=== PATIENT | female | born 2000 | race Caucasian/White ===

== ENCOUNTER → 2020-12-28 14:38 | Outpatient (CLI) | payer BC, SELFPAY ==
--- NOTE | ~2020-12-28 | XR_ITS ---
XR chest 2V DATE: 12/28/2020 14:55 INDICATION: Acute lower respiratory infection TECHNIQUE: PA and lateral views COMPARISON: 02/17/2016 PA and lateral chest FINDINGS: Normal heart size. No hilar or mediastinal enlargement. No pulmonary infiltrate or consolid ation, pleural effusion or pulmonary vascular congestion or pneumothorax. IMPRESSION: No active cardiopulmonary disease Reviewed, dictated and finalized at location A.
== END ==
PROVIDERS: PCP Family Medicine; Visit Provider Physician Assistant
DX: J22 Unspecified acute lower respiratory infection (principal)
CPT/HCPCS: 71046

== ENCOUNTER 2021-05-15 10:13 | Emergency (ER) | payer BC, SELFPAY ==
[2021-05-15 10:27] VITALS: BP 134/87; PULSE 77; RESP 16; TEMP 36.9; O2SAT 99
--- NOTE | 2021-05-15 11:40 | ED.NAVMDI ---
HPI - Nausea/Vomiting/Diarrhea General Chief complaint: Nausea/Vomiting/Diarrhea Stated complaint: Stomach Pain Source: patient and RN notes reviewed Limitations: no limitations History of Present Illness HPI Narrative: The patient, a non-smoker/nondrinker here with also unwell roommates, presents with 1/2-week history of diarrhea x8 to 10/day associated with scratchy throat. Symptoms are mild, unrelieved with Imodium and associated with mild cramping. No abdominal pain, fever, vomiting, cough, frequency/dysuria, foreign travel, blood; no loss of taste/smell, CP, rash, shortness of breath. 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 Related Data Home Medications Medication Instructions Recorded Confirmed norgestimate 0.25 mg-ethinyl 1 tablet PO DAILY 03/30/21 03/30/21 estradiol 35 mcg tablet Allergies Allergy/AdvReac Type Severity Reaction Status Date / Time No Known Allergies Allergy Verified 03/30/21 12:19 Review of Systems Review of Systems: General/Constitutional: No weight loss,fever Eyes: N0: Redness,discharge Ears/Nose/Throat: No: Epistaxis,ear discharge Respiratory: Denies: Hemoptysis Gastrointestinal: No Vomiting, Bleeding-rectal Skin: No Lumps, eruption Neurologic: No Focal Weakness,Sz Hematologic: Denies: Petechiae/Purpura Psychiatric: No: Suicida ideationl All Other Systems: Reviewed and Negative [facility] Social History Social History (Updated 03/30/21 @ 12:16 by Cookie Chaudhary) Second hand tobacco smoke exposure: No Alcohol intake: never Substance use: never Substance use type: does not use Gender identity (if verbalized by the patient): Female Comments At time of signature, agree with nursing past medical, surgical, social and family history. There is no relevant family history pertinent to the presenting complaint Exam Narrative: General Appearance: Well appearing, No distress EYE: PERRLA, Conjunctiva clear Ears: External ear normal Nose: Normal nose Mouth/Throat: Normal appearing, Normal lips Neck: Supple Respiratory: Airway patent, No respiratory distress Cardiovascular: RRR Abdomen: Soft, Non-tender, Musculoskeletal: Full ROM Skin: Warm, Dry Neurological: A&O x3, CN II-X intact Psychiatric: Normal mood, Normal affect Course Vital Signs Vital signs: Vital Signs Temperature 98.4 F 05/15/21 10:27 Pulse Rate 77 05/15/21 10:27 Respiratory Rate 16 05/15/21 10:27 Blood Pressure 134/87 05/15/21 10:27 Pulse Oximetry 99 05/15/21 10:27 Temperature 98.4 F 05/15/21 10:27 Pulse Rate 77 05/15/21 10:27 Respiratory Rate 16 05/15/21 10:27 Blood Pressure 134/87 05/15/21 10:27 Pulse Oximetry 99 05/15/21 10:27 MDM - Nausea/Vomiting/Diarrhea Lab Data Labs: Lab Results 05/15/21 Range/Units 10:44 POC SARS CoV-2 Ag Negative (Negative) Discharge Plan Discharge Clinical Impression: Diarrhea Qualifiers: Diarrhea type: unspecified type Qualified Code(s): R19.7 - Diarrhea, unspecified Patient Disposition: Home, Self-Care Condition: Stable Instructions: Acute Diarrhea (ED) Prescriptions: New diphenoxylate-atropine [Lomotil] 2.5-0.025 mg tablet 1 tablet PO DAILY Qty: 7 RF: 0 ondansetron HCl [Zofran] 4 mg tablet 4 mg PO BID PRN (Reason: nausea and vomiting) Qty: 10 RF: 0 No Action albuterol sulfate [ProAir HFA] 90 mcg/actuation HFA aerosol inhaler 1 inh inhalation Q4H PRN (Reason: shortness of breath or wheezing) Qty: 8.5 RF: 0 norgestimate-ethinyl estradiol [Sprintec (28)] 0.25-35 mg-mcg tablet 1 tablet PO DAILY RF: 0 Follow-up/Referrals: Coby Reyes MD [Primary Care Provider] - Stand Alone Forms: Work/School Release IP
== END 2021-05-15 11:45 | disposition home or self-care (01) ==
PROVIDERS: Emergency Provider Emergency Medicine; PCP Family Medicine
DX: R19.7 Diarrhea, unspecified (principal); R11.2 Nausea with vomiting, unspecified; Z20.822 Contact with and (suspected) exposure to COVID-19
CPT/HCPCS: 87426; 99213; C9803; G0463

== ENCOUNTER 2021-09-22 00:52 | Day surgery (SDC) | payer BC, SELFPAY ==
[2021-09-13 10:17] VITALS: BMI 28.4
[2021-09-22 10:55] VITALS: BP 141/74; PULSE 103; RESP 16; TEMP 36.3; O2SAT 100; BMI 31.0
--- NOTE | 2021-09-22 11:15 | WPDANESEPPF ---
Anes - Initial Pre Proc Eval Procedure: Operation Date: 09/22/21 12:30 Proposed Procedures p Colonoscopy - Matthew Hurst MD Date/Time: 09/22/21 11:15 Surgeon: Matthew Hurst MD Pre Op Diagnosis: abdominal pain, constipation, rectal pain Patient Data Age: 21 Gender: F Height: 1.68 m Weight: 87.2 kg Last Vital Signs Temp 36.3 C L 09/22/21 10:55 Pulse 103 H 09/22/21 10:55 Resp 16 09/22/21 10:55 BP 141/74 H 09/22/21 10:55 Pulse Ox 100 09/22/21 10:55 Allergies Allergy/AdvReac Type Severity Reaction Status Date / Time No Known Allergies Allergy Verified 09/22/21 10:58 Home Medications Medication Instructions Recorded Confirmed Type albuterol sulfate 90 mcg/actuation 1 inh INHALATION Q4H PRN #8.5 g 12/28/20 09/22/21 Rx aerosol inhaler norgestimate 0.25 mg-ethinyl 1 tablet PO DAILY 03/30/21 09/22/21 History estradiol 35 mcg tablet Patient hx anesthesia problems: none Family hx anesthesia problems: none Results Review: All pre-operative results and documents have been reviewed as part of the pre-operative evaluation. [facility], [facility] Past Medical History Medical History (Updated 09/22/21 @ 11:16 by Wiley Wadsworth MD) Constipation Obesity Social History Social History Smoking status: Never smoker Second hand tobacco smoke exposure: No Alcohol intake: never Substance use: never Substance use type: does not use Living arrangements: alone Gender identity (if verbalized by the patient): Female Spiritual care concerns: No Anes - Eval Final PreProcedure Day of Procedure 09/22/21 11:15 Patient weight: obese Heart: regular rate and rhythm Lungs: clear to auscultation Airway: Mallampati scale class II Neurological: alert and oriented Last oral intake: >/= 8 hours ASA classification: II Emergent: no Anesthetic plan: proceed Anesthesia type and monitoring: general GIVS and standard monitoring Results Review: All pre-operative results and documents have been reviewed as part of the pre-operative evaluation. Informed Consent: The patient's anesthetic plan and its attendant risks and benefits were discussed with the patient/family/POA. Questions were solicited and answers provided to the satisfaction of the patient/family/POA.
[2021-09-22] MEDS: LACTATED RINGERS 1,000 ML 150 ML IV CONT (11:18)
--- NOTE | 2021-09-22 11:44 | WPDHPUPDATE1 ---
History and Physical Update Update Date/Time: 09/22/21 11:44 History and Physical has been reviewed, including an updated exam of the patient. There are NO changes in the patient's condition. Risks, benefits, and alternatives have been discussed and questions answered. Patient agrees to proceed with procedure.
[2021-09-22 12:03] VITALS: BP 120/76; PULSE 100; RESP 20; O2SAT 100
[2021-09-22 12:13] VITALS: BP 121/97; PULSE 79; RESP 20; O2SAT 100
[2021-09-22 12:23] VITALS: BP 123/87; PULSE 78; RESP 17; O2SAT 100
== END 2021-09-22 12:30 | disposition home or self-care (01) ==
PROVIDERS: PCP Family Medicine; Visit Provider Internal Medicine Gastroenterology
PROC: 0DJD8ZZ Inspection of Lower Intestinal Tract, Via Natural or Artificial Opening Endoscopic (ICD-10-PCS; CPT 45378; principal; 2021-09-22 12:30)
DX: K59.00 Constipation, unspecified (principal); K63.5 Polyp of colon; E66.9 Obesity, unspecified; Z68.31 Body mass index [BMI] 31.0-31.9, adult; Z79.51 Long term (current) use of inhaled steroids
CPT/HCPCS: 45385; 88305; J2704; J7120

== ENCOUNTER → 2022-06-20 17:05 | Outpatient (CLI) | payer BC, SELFPAY ==
--- NOTE | ~2022-06-20 | XR_ITS ---
XR hand RT 2V DATE: 06/20/2022 17:40 INDICATION: Polyarthralgia. Elevated CRP. TECHNIQUE: AP and lateral views COMPARISON: None FINDINGS: Chronic ununited ulnar styloid process. No fracture, dislocation, periosteal reaction or bone destruction, erosive change or chondrocalcinosi s. Joint spaces are well preserved. IMPRESSION: No significant abnormality Reviewed, dictated and finalized at location A. IMPRESSION: No significant abnormality
--- NOTE | ~2022-06-20 | XR_ITS ---
XR lumbar spine 2-3V DATE: 06/20/2022 17:40 INDICATION: Polyarthralgia. Back pain. TECHNIQUE: AP, lateral, coned lateral lumbosacral views COMPARISON: None FINDINGS: Slight dextroscoliosis of the lumbar spine. There are 4 functional lumbar vertebra. There i s a transitional lumbosacral vertebra with bilateral sacralization and pseudoarthrosis. This may be a source of chronic low back pain. No fracture or bone destruction or spondylolisthesis. Lumbar interspaces appear well preserved. The s acral iliac joints are intact. IMPRESSION: Transitional lumbosacral vertebra; this may be a source of chronic low back pain Reviewed, dictated and finalized at location A.
--- NOTE | ~2022-06-20 | XR_ITS ---
XR hand LT 2V DATE: 06/20/2022 17:40 INDICATION: Polyarthralgia. Elevated CRP TECHNIQUE: AP and lateral views COMPARISON: None FINDINGS: No fracture or dislocation, periosteal reaction or bone destruction. Joint spaces are prese rved. No erosive change or chondrocalcinosis. IMPRESSION: Negative Reviewed, dictated and finalized at location A. IMPRESSION: Negative
== END ==
PROVIDERS: PCP Internal Medicine; Visit Provider Physician Assistant Medical
DX: M25.50 Pain in unspecified joint (principal); Q76.49 Other congenital malformations of spine, not associated with scoliosis
CPT/HCPCS: 72100; 73120

== ENCOUNTER 2022-07-15 11:04 | Emergency (ER) | payer BC, SELFPAY | END 2022-07-15 12:11 | disposition left against medical advice (07) | PROVIDERS: Emergency Provider Internal Medicine Hematology & Oncology; PCP Internal Medicine | DX: Z53.21 Procedure and treatment not carried out due to patient leaving prior to being seen by health care provider (principal) | CPT/HCPCS: 99199 ==